=== PATIENT | female | born 2005 | race African-American/Black ===

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

== ENCOUNTER 2023-03-22 17:28 | Emergency (ER) | payer OTHER, SELFPAY ==
[2023-03-22 17:37] VITALS: BP 114/56; PULSE 135; RESP 18; TEMP 37.8; O2SAT 98; BMI 21.4
--- NOTE | 2023-03-22 17:38 | ED_ITS ---
HPI - General Adult General Chief complaint: Nausea/Vomiting/Diarrhea Stated complaint: vomiting/sob Related Data Previous Rx's Medication Instructions Recorded hydroxyzine HCl 10 mg tablet 10 mg PO TID PRN anxiety #14 tabs 10/04/22 medroxyprogesterone 150 mg/mL 150 mg IM [id number] contraception 10/04/22 intramuscular suspension #1 mL (Depo-Provera) Allergies Allergy/AdvReac Type Severity Reaction Status Date / Time No Known Allergies Allergy Unverified 11/01/19 17:12 [facility] Past Medical History Medical History Difficulty concentrating Anxiety and depression Living in intermediate Social History Social History Advance Directives: No Advance Directives Information Provided: No Physical Exam ED Vital Signs: BMI result Body Mass Index 21.4 Course Course Course Narrative: This is a rapid medical exam. Deferred additional HPI, ROS, PE to primary provider. 17 yo female with no known medical problems here with vomiting, headache, abdominal cramping. Son was sick with similar symptoms. Did COVID test this morning which was negative. LMP 1 month ago. Took test this morning which was negative. Will obtain labs, UA, ur preg and viral testing Zofran ordered VSS Medical Decision Making Lab Data 03/22/23 18:18 03/22/23 18:18 Labs: Lab Results 03/22/23 Range/Units 18:18 WBC 4.2 L (4.8-10.8) X10*3/uL RBC 5.13 (4.20-5.50) X10*6/uL Hgb 12.9 (12.0-16.0) g/dl Hct 40.2 (37.0-47.0) % MCV 78.4 L (80.0-98.0) fL MCH 25.1 L (27.0-33.0) pg MCHC 32.1 (31.0-35.0) g/dl RDW 13.2 (11.0-16.0) % Plt Count 314 (160-400) X10*3/uL MPV 8.6 L (9.4-12.3) fL Immature Gran % (Auto) 0.2 (0.0-0.4) % Neut % (Auto) 69.8 (45-73) % Lymph % (Auto) 16.0 L (20-40) % Frio % (Auto) 13.6 H (2-11) % Eos % (Auto) 0.2 (0-4) % Baso % (Auto) 0.2 (0-2) % Lymph # (Auto) 0.7 L (1.2-4.9) X10*3/uL Frio # (Auto) 0.6 (0.1-1.2) X10*3/uL Eos # (Auto) 0.0 (0.0-0.4) X10*3/uL Baso # (Auto) 0.0 (0.0-0.2) X10*3/uL Abs Immat Gran (auto) 0.01 (0.00-0.03) X10*3/uL Absolute Neuts (auto) 2.9 (2.0-8.3) x10*3/uL Absolute Nucleated RBC 0.000 (0.0-0.012) X10*3/uL Nucleated RBC % (auto) 0.0 (0.0-0.2) /100WBC Sodium 138 (135-145) mmol/L Potassium 3.5 (3.3-5.1) mmol/L Chloride 105 (96-108) mmol/L Carbon Dioxide 23 (22-29) mmol/L Anion Gap 14 (12-20) BUN 7 L (9-16) mg/dL Creatinine 0.77 (0.5-1.4) mg/dL Estim Creat Clear Calc 118.2 Estimated GFR > 60 Random Glucose 107 (60-115) mg/dL Calcium 8.8 (8.4-10.2) mg/dL Total Bilirubin 1.1 H (0.0-1.0) mg/dL Direct Bilirubin 0.4 (0.0-0.5) mg/dL AST 14 (5-31) U/L ALT 6 (0-31) U/L Alkaline Phosphatase 85 (39-117) U/L Total Protein 7.0 (6.5-8.0) g/dL Albumin 4.2 (3.5-5.0) g/dL COVID-19 (TETO) Negative (Negative) COVID-19 Clin Com See Note Influenza Type A (ERICH) Negative (Negative) Influenza Type B (ERICH) Negative (Negative) Influenza A & B Note See Note Discharge Plan Discharge Clinical Impression: Vomiting Patient Disposition: Left W/O Completing Treatment Prescriptions: No Action hydroxyzine HCl 10 mg tablet 10 mg PO TID PRN (Reason: anxiety) Qty: 14 0RF medroxyprogesterone [Depo-Provera] 150 mg/mL suspension 150 mg IM [id number] Qty: 1 2RF Rx Instructions: just bottle- not prefilled syringe Interventions: LWBS Worksheet Last Done: 03/23/23 00:47 Discharge Date/Time: 03/23/23 00:48
[2023-03-22 18:28] LABS: MANUAL DIFF FLAG NO
[2023-03-22 18:29] LABS: Basophils Percent Auto 0.2 % (0-2); Eosinophils Percent Auto 0.2 % (0-4); Hematocrit 40.2 % (37.0-47.0); Hemoglobin 12.9 g/dl (12.0-16.0); Imm Gran Abs Auto 0.01 X10*3/uL (0.00-0.03); Imm Gran Pct Auto 0.2 % (0.0-0.4); Lymphocytes Absolute Auto 0.7 X10*3/uL (1.2-4.9); Mean Corpuscular HGB Conc 32.1 g/dl (31.0-35.0); Mean Corpuscular Hemoglobin 25.1 pg (27.0-33.0); Mean Corpuscular Volume 78.4 fL (80.0-98.0); Mean Platelet Volume 8.6 fL (9.4-12.3); Monocytes Absolute Auto 0.6 X10*3/uL (0.1-1.2); Monocytes Percent Auto 13.6 % (2-11); Neutrophils Absolute Auto 2.9 x10*3/uL (2.0-8.3); Neutrophils Percent Auto 69.8 % (45-73); Platelet Count 314 X10*3/uL (160-400); Red Blood Count 5.13 X10*6/uL (4.20-5.50); Red Cell Distribution Width 13.2 % (11.0-16.0); White Blood Count 4.2 X10*3/uL (4.8-10.8)
[2023-03-22 18:42] LABS: Alanine Aminotransferase 6 U/L (0-31); Albumin Level 4.2 g/dL (3.5-5.0); Alkaline Phosphatase 85 U/L (39-117); Anion Gap 14 (12-20); Aspartate Amino Transferase 14 U/L (5-31); Bilirubin Direct 0.4 mg/dL (0.0-0.5); Bilirubin Total 1.1 mg/dL (0.0-1.0); Blood Urea Nitrogen 7 mg/dL (9-16); Calcium 8.8 mg/dL (8.4-10.2); Carbon Dioxide 23 mmol/L (22-29); Chloride 105 mmol/L (96-108); Creatinine Clr Calc Pharmacy 118.2; Estimated Glomerular Filt Rate > 60; Glucose Random 107 mg/dL (60-115); Potassium 3.5 mmol/L (3.3-5.1); Sodium 138 mmol/L (135-145)
[2023-03-22 18:55] LABS: COVID-19 Test Negative (Negative); IDNOW Serial# 16C4AD1C; IDNOW Serial# 55D5AD1C; Influenza A Negative (Negative); Influenza B2 Negative (Negative)
== END 2023-03-23 00:48 | disposition left against medical advice (07) ==
PROVIDERS: Nurse Practitioner Family; Emergency Provider Emergency Medicine; PCP Pediatrics
DX: R11.2 Nausea with vomiting, unspecified (principal); R06.02 Shortness of breath; R19.7 Diarrhea, unspecified; Z11.52 Encounter for screening for COVID-19
CPT/HCPCS: 36415; 80048; 80076; 85025; 87502; 87635; 99281; 99283

== ENCOUNTER → 2023-03-28 10:21 | Outpatient (BNV) | payer OTHER, SELFPAY ==
--- NOTE | 2023-03-28 10:21 | A.OFFVIS_ITS ---
Intake Intake Visit Reasons: Amb Documentation Allergies No Known Allergies Allergy (Unverified 11/01/19 17:12) HPI HPI Comments History of Present Illness Details student was seen on tuesday for migraine - given tylenol and cough drops. didn't want to leave school - multiple neg covid tests and flu etc. she is here w/ ear pain and coughing and bad headache again,. she'd like to go home today. states she is not taking any medicaitons - not the hydroxyzine (never picked up) and she is not and has no medical allergies PFS Medical History Difficulty concentrating Anxiety and depression Living in [facility] Social History Advance Directives: No Advance Directives Information Provided: No Review of Systems Const Details: Counseling visit: All systems reviewed & are unremarkable except as noted in HPI and below Reports as per HPI Eyes Reports no additional complaints ENT Reports otalgia, Reports nasal congestion, Reports sinus pressure and Reports sore throat Card Reports no additional complaints Resp Details: student hates coughing and won't breath deeply Reports as per HPI, Reports chest congestion and Reports cough GI Reports as per HPI Musc Reports as per HPI Neuro Reports as per HPI Psych Reports as per HPI Physical Exam Const Other: doesn't not appear to feel well, holding head and right ear General: cooperative Nutritional Appearance: well nourished Orientation/consciousness: oriented to person Limitations: no limitations HEENT Ears: external ears normal, TM normal on the left and TM abnormal (right, bulging w/ serous, not red) bulging General nose exam: Normal external nose present Eyes Other: wnl Chest Other: easy breathing Resp Other: student will not breath deeply - when she coughs it is deep and loose sounding but she refuses to cough or to breath deeply because it will make her cough. Effort & Inspection: normal respiratory effort and able to speak in complete sentences Skin Other: normal in appearance Neuro Other: grossly normal General: oriented to person Cognition (Neuro): normal cognition Gait exam (Neuro): Normal gait present Psych Other: see HPI Mental Status: mental status grossly normal Speech and movement: Clear speech present Attitude: cooperative Thought process: Normal thought process present Assessment & Plan Assessment & Plan (1) Sinus infection: Code(s): J32.9 - Chronic sinusitis, unspecified (2) Bronchitis: Code(s): J40 - Bronchitis, not specified as acute or chronic (3) Living in [place] [facility]: Code(s): Z59.01 - Sheltered homelessness Plan she really doesn't feel well, transportation arranged to go home. she cant' get to her pcp - started her on zpak - and gave ibuprofen 600mg now and some samples to take home. if she doesnt feel any better in 48 hours she will go to urgent care. jaycob badillo - involved in her care - coord care Medications: Discontinued hydroxyzine HCl Discontinued Reason: None 10 mg PO TID PRN 14 tabs 0RF anxiety Coding Level of Care Code Est Pt Level 3 (81406) Diagnoses Sinus infection J32.9 Bronchitis J40 Living in [facility] Z59.01 Time Spent (min) 20 Comment extra support needed to help student
== END ==
PROVIDERS: PCP Pediatrics; Visit Provider Nurse Practitioner Family
DX: J32.9 Chronic sinusitis, unspecified (principal); J40 Bronchitis, not specified as acute or chronic; Z59.01 Sheltered homelessness
CPT/HCPCS: 99213

== ENCOUNTER → 2023-04-07 10:29 | Outpatient (BNV) | payer OTHER, SELFPAY ==
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
== END ==
PROVIDERS: PCP Pediatrics; Visit Provider Nurse Practitioner Family
DX: J32.9 Chronic sinusitis, unspecified (principal); R41.840 Attention and concentration deficit; F41.9 Anxiety disorder, unspecified; F32.A Depression, unspecified; Z59.01 Sheltered homelessness; Z30.09 Encounter for other general counseling and advice on contraception; Z13.30 Encounter for screening examination for mental health and behavioral disorders, unspecified
CPT/HCPCS: 96160; 99215

== ENCOUNTER → 2023-04-11 09:53 | Outpatient (BNV) | payer OTHER, SELFPAY ==
--- NOTE | 2023-04-11 09:57 | ...WebTmpl.AM.BPCHK ---
Intake Intake Visit Reasons: Amb Documentation, this was a mistake Allergies No Known Allergies Allergy (Unverified 11/01/19 17:12) Coding Level of Care Code Est Pt Level 1 (19651)
--- NOTE | 2023-04-11 10:32 | A.OFFVIS_ITS ---
Intake Intake Visit Reasons: Amb Documentation Allergies No Known Allergies Allergy (Unverified 11/01/19 17:12) HPI HPI Comments History of Present Illness Details long conversation about depression. student signed up for me because she really wants to be on medication. she didn't come intp school on tuesday because she couldn't get out of bed. she is very very depressed. she is not suicidal but she feels bery unmotivated. even when baby cries - she doesn't want to move. she does, but she wants to feel differently about it. she is 'super not on my tgame'. her mood is all over the place. she initially said she would participate in therapy, but then today she is saying that she doesn;'t want one. that she really doesn't want to talk some days and frankly doesn't really want to be in school. she is too tired. she states that she went to bed at 230am and woke w/ alarm at 630, and then again at 7 didn't want to get up. states that her baby was up happy in crib watchign whatever i put on my laptop / she still smokes to settle in the evening. PLAN lengthy plan w/ student and then consultation w/ Kylah Caldera. if student isnt coming to school and isn't participating in therapy here then it doesn't make sense to put medications through from here. she can use her pcp to get this medication where there weill be better follow up. kylah will meet w/ her today and suggest a plan that gets her back to school tomorrow- to go get meds and to go to [facility] and discuss a plan that she participates in and designs. This cant be a fully imposed plan or she wont do it. suggested outpatient psych if she cant stick wt a plan structured around school. kylah will get this clarified w/ her today and discuss tomorrow [facility] Medical History Difficulty concentrating Anxiety and depression Living in [facility] Social History Advance Directives: No Advance Directives Information Provided: No Review of Systems Const Details: Counseling visit: All systems reviewed & are unremarkable except as noted in HPI and below Reports as per HPI Resp Reports as per HPI GI Reports as per HPI Musc Reports as per HPI Neuro Reports as per HPI Psych Reports as per HPI Physical Exam Const General: cooperative, healthy appearing and no acute distress Nutritional Appearance: well nourished Orientation/consciousness: oriented to person Limitations: no limitations HEENT Other: wnl Eyes Other: wnl Chest Other: easy breathing Resp Effort & Inspection: able to speak in complete sentences Skin Other: normal in appearance Neuro General: oriented to person Psych Other: student gets a bit silent - she appears to be withdrawing though not hostile, nor uncommunicative. i question if she is disociating, discussed that she should go back and work w/ elementary math tutor as it keeps her distracted and moving forward. she will do this and i bridgette consult w CV re plan for her. Appearance: well kempt Mental Status: mental status grossly normal Speech and movement: Clear speech present Attitude: cooperative Thought process: Normal thought process present Assessment & Plan Assessment & Plan (1) Counseling and coordination of care: Code(s): Z71.89 - Other specified counseling (2) Anxiety and depression: Code(s): F41.9 - Anxiety disorder, unspecified; F32.A - Depression, unspecified (3) Living in [facility]: Code(s): Z59.01 - Sheltered homelessness (4) Major depression, chronic: Code(s): F32.9 - Major depressive disorder, single episode, unspecified Plan extensive support and counseling - coord care w/ onsite counselor and she will address plan as noted above. meds put into pharmacy small quantity and student needs to be coming to school and going to therapy to get this plan moving. Medications: New sertraline 12.5 mg (1/2 x 25 mg) PO DAILY 14 tabs 0RF Coding Level of Care Code Est Pt Level 5 (83642) Diagnoses Counseling and coordination of care Z71.89 Anxiety and depression F41.9; F32.A Living in [place] Z59.01 Major depression, chronic F32.9 Time Spent (min) 60 Comment extensive counseling and coord care
--- NOTE | 2023-04-12 10:28 | A.OFFVIS_ITS ---
Intake Intake Visit Reasons: Amb Documentation Allergies No Known Allergies Allergy (Unverified 11/01/19 17:12) HPI HPI Comments History of Present Illness Details student returning for mental health issues- she feels terribly depressed ( and i feel she may be dissociating given a blank response during intense talking). she made it to school today after taking child to in [place]. she want help. jaycob met w/ her yestreday to connect to therapist, she hadn't wanted this,. she was on hotline till engineering technical specialist. texting. she states today that she needs help and willing to get therapist. [facility]cob will help her get this morning. and she will start tomoirrow morning. long discussion w student about the meds and her fear about starting on them. we will start low so that she wont have any complaints and we can adjust meds up from there. she smiles and agrees. [facility] . PFSH Medical History Difficulty concentrating Anxiety and depression Living in intermediate Social History Advance Directives: No Advance Directives Information Provided: No Review of Systems Const Details: Counseling visit: All systems reviewed & are unremarkable except as noted in HPI and below Reports as per HPI Resp Reports as per HPI GI Reports as per HPI Musc Reports as per HPI Neuro Reports as per HPI Psych Reports as per HPI Physical Exam Const General: cooperative, healthy appearing and no acute distress Nutritional Appearance: well nourished Orientation/consciousness: oriented to person Limitations: no limitations HEENT Other: wnl Eyes Other: wnl Chest Other: easy breathing Resp Effort & Inspection: able to speak in complete sentences Skin Other: normal in appearance Neuro General: oriented to person Psych Other: see HPI Mental Status: mental status grossly normal Speech and movement: Clear speech present Attitude: cooperative Thought process: Normal thought process present Assessment & Plan Assessment & Plan (1) Counseling and coordination of care: Code(s): Z71.89 - Other specified counseling (2) Anxiety and depression: Code(s): F41.9 - Anxiety disorder, unspecified; F32.A - Depression, unspecified (3) Living in intermediate: Code(s): Z59.01 - Sheltered homelessness (4) Major depression, chronic: Code(s): F32.9 - Major depressive disorder, single episode, unspecified Plan see hpi: intensive networking w/ onsite staff and off site mental health supports, and her intermediate, to get her into care. she will start medication tomorrow and return for visit w/ me. Medications: New sertraline 12.5 mg (1/2 x 25 mg) PO DAILY 14 tabs 0RF Coding Level of Care Code Est Pt Level 4 (74957) Diagnoses Counseling and coordination of care Z71.89 Anxiety and depression F41.9; F32.A Living in intermediate Z59.01 Major depression, chronic F32.9 Time Spent (min) 45 Comment extensive support and coord care
--- NOTE | 2023-04-13 09:59 | A.OFFVIS_ITS ---
Intake Intake Visit Reasons: Amb Documentation Allergies No Known Allergies Allergy (Unverified 11/01/19 17:12) HPI HPI Comments History of Present Illness Details i dont understand what is happening. i am seeing this patient on 04/13 at 930-1000 am. i can not get the system to move beyond the 26th for this patient student was able to [employer] medication and tried taking a 1/2 pill this am - she feels nothing on it (this was the goal as she was afraid of medication). she states the pills were hard to break and disintegrated as pharmacy didnt cut them. [facility] holding medicaitons so jaycob aby has asked that student get a note to be able to bring meds to my office to distribute if she has forgotten to take them at 'home'. she has attempted to get therapist but there is a delay working w. her version of [facility] the place they went wouldnt take that version. so jaycob is working w. her on this. Delvin has asked to increase dose more quickly so she will take a whole pill tomorrow and continue to check in w. me and continue to work on getting therapist. ongoing consultation and coodintating care w/ jaycob badillo on site student support counselor. [facility] Medical History Difficulty concentrating Anxiety and depression Living in [facility] Social History Advance Directives: No Advance Directives Information Provided: No Review of Systems Const Details: Counseling visit: All systems reviewed & are unremarkable except as noted in HPI and below Reports as per HPI Resp Reports as per HPI GI Reports as per HPI Musc Reports as per HPI Neuro Reports as per HPI Psych Reports as per HPI Physical Exam Const Other: still seems fairly blank - flat affect and appears not engaged but she is willing to interact and is able to advocate for her self General: cooperative, healthy appearing and no acute distress Nutritional Appearance: well nourished Orientation/consciousness: oriented to person Limitations: no limitations HEENT Other: wnl Eyes Other: wnl Chest Other: easy breathing Resp Effort & Inspection: able to speak in complete sentences Skin Other: normal in appearance Neuro General: oriented to person Psych Other: see HPI Mental Status: mental status grossly normal Speech and movement: Clear speech present Attitude: cooperative Thought process: Normal thought process present Assessment & Plan Assessment & Plan (1) Counseling and coordination of care: Code(s): Z71.89 - Other specified counseling (2) Anxiety and depression: Code(s): F41.9 - Anxiety disorder, unspecified; F32.A - Depression, unspecified (3) Living in [facility]: Code(s): Z59.01 - Sheltered homelessness (4) Major depression, chronic: Code(s): F32.9 - Major depressive disorder, single episode, unspecified Plan ongoing support and med management while waiting to get into psychiatric care/therapy etc. counseling and coord care w. onsite and off-site supports ([facility] and behavioral health) Medications: New sertraline 12.5 mg (1/2 x 25 mg) PO DAILY 14 tabs 0RF Patient Instructions: increase to a whole tablet tomorrow Coding Level of Care Code Est Pt Level 4 (25036) Diagnoses Counseling and coordination of care Z71.89 Anxiety and depression F41.9; F32.A Living in [facility] Z59.01 Major depression, chronic F32.9 Time Spent (min) 30 Comment extensive counseilng and coord care
== END ==
PROVIDERS: PCP Pediatrics; Visit Provider Nurse Practitioner Family
DX: F41.9 Anxiety disorder, unspecified (principal); F32.A Depression, unspecified; Z71.89 Other specified counseling; Z59.01 Sheltered homelessness; F32.9 Major depressive disorder, single episode, unspecified
CPT/HCPCS: 99214; 99215; 99417

== ENCOUNTER → 2023-04-25 10:06 | Outpatient (BNV) | payer OTHER, SELFPAY ==
--- NOTE | 2023-04-25 10:06 | A.OFFVIS_ITS ---
Intake Intake Visit Reasons: Amb Documentation Allergies No Known Allergies Allergy (Unverified 11/01/19 17:12) HPI HPI Comments History of Present Illness Details extensive conversation and support again. student states that she has been taking 1/2 a pill every day. there has been a LOT of confusion - a note was written to support her in increasing dose to 1 pill and to bringing some tablets to school in case she forgot meds, but that was never given to her - not sure why this wasn't passed along. but she feels that 1/2 tablet is actually working well - she has gotten out of the house more (intermediate) and gone to the mall. she feels she's less anxious and more able to get moving on her day. she then will say that she occaionally missed a day and it makes her feel badly. teaching done aobut the half life concepts - so we talked about increasing the dosage to give her a little more cushion and then she states that the meds are making her feel sleepy. and then she will say that the meds help her just be calm. she notes that she is more able to make eye contact (i haven't even noticed this as an issue but she feels that she avoids looking directly at people and now she is able. she is very confused and confusing. we developed a plan together that she will continue w/ 1/2 tablet for another week to let her adjust and observe how she is doing. both jaycob our onsite cousnelor and the intermediate folks are trying to get her connected w/ therapy - but this hasnt happened yet. she states that the intermediate staff are noticing improvement SLEEP? she didn't sleep well last night - she didn't go to bed until 4 am and overslept through her alarm. she is still smoking every night to sleep but was up until 4 so it is clearly not the answer. but to not run against this - we just discussed this as her solution and we will do a deeper dive later. consulted w/ jaycob her counselor re: her plan and she states that earlier that day shed been complaining that the dose wasn't high enough. but she is owrking on getting her into counseling and we will just support her on this path currently - increasing the dose doesnt seem warranted at this time and i am trying to encourage her own agency to make these decisions with care. [facility] Medical History Difficulty concentrating Anxiety and depression Living in intermediate Social History Advance Directives: No Advance Directives Information Provided: No Review of Systems Const Details: Counseling visit: All systems reviewed & are unremarkable except as noted in HPI and below Reports as per HPI Resp Reports as per HPI GI Reports as per HPI Musc Reports as per HPI Neuro Reports as per HPI Psych Reports as per HPI Physical Exam Const General: cooperative, healthy appearing and no acute distress Nutritional Appearance: well nourished Orientation/consciousness: oriented to person Limitations: no limitations HEENT Other: wnl Eyes Other: wnl Chest Other: easy breathing Resp Effort & Inspection: able to speak in complete sentences Skin Other: normal in appearance Neuro General: oriented to person Psych Other: see HPI Mental Status: mental status grossly normal Speech and movement: Clear speech present Attitude: cooperative Thought process: Normal thought process present Assessment & Plan Assessment & Plan (1) Major depression, chronic: Code(s): F32.9 - Major depressive disorder, single episode, unspecified (2) Counseling and coordination of care: Code(s): Z71.89 - Other specified counseling (3) Difficulty concentrating: Code(s): R41.840 - Attention and concentration deficit (4) Living in intermediate: Code(s): Z59.01 - Sheltered homelessness Plan continue to monitor closely - her attendance at school has improved somewhat (the intermediate also pushing this). she will sign up next tuesday to see me and we will assess this issue before she runs out of medication. student needs extensive and wrap-around support so team is working on this together. Coding Level of Care Code Est Pt Level 4 (77145) Diagnoses Major depression, chronic F32.9 Counseling and coordination of care Z71.89 Difficulty concentrating R41.840 Living in intermediate Z59.01 Time Spent (min) 35 Comment extensive counseling and coord of care
== END ==
PROVIDERS: PCP Pediatrics; Visit Provider Nurse Practitioner Family
DX: F32.9 Major depressive disorder, single episode, unspecified (principal); Z71.89 Other specified counseling; R41.840 Attention and concentration deficit; Z59.01 Sheltered homelessness
CPT/HCPCS: 99214

== ENCOUNTER → 2023-05-09 10:41 | Outpatient (BNV) | payer OTHER, SELFPAY ==
--- NOTE | 2023-05-09 10:41 | A.OFFVIS_ITS ---
Intake Intake Visit Reasons: Amb Documentation Allergies No Known Allergies Allergy (Unverified 11/01/19 17:12) HPI HPI Comments History of Present Illness Details student stopping in to say needs refill of rx - only has two 1/2 pills - she feels that 1/2 pill is working well and doesnt want to change the dose. she is able to participate in activities that she wants to. she appears well and is smiling. i will put rx through - [facility] can only function w. rx as written on bottle. they are able to break the pills in half now. spoke w. her counselor to confirm that 1/2 is doing it;s job in getting her to school? (states yes, that student seems to be doing much better, smiling and making it to school regularly - even states that student stated during morning cocopah time that she is feeling much better) student states that [facility] is looking to get her a therapist but that hasnt happened yet. PFSH Medical History Difficulty concentrating Anxiety and depression Living in [facility] Social History Advance Directives: No Advance Directives Information Provided: No Review of Systems Const Details: Counseling visit: All systems reviewed & are unremarkable except as noted in HPI and below Reports as per HPI Resp Reports as per HPI GI Reports as per HPI Musc Reports as per HPI Neuro Reports as per HPI Psych Reports as per HPI Physical Exam Const General: cooperative, healthy appearing and no acute distress Nutritional Appearance: well nourished Orientation/consciousness: oriented to person Limitations: no limitations HEENT Other: wnl Eyes Other: wnl Chest Other: easy breathing Resp Effort & Inspection: able to speak in complete sentences Skin Other: normal in appearance Neuro General: oriented to person Psych Other: see HPI Mental Status: mental status grossly normal Speech and movement: Clear speech present Attitude: cooperative Thought process: Normal thought process present Assessment & Plan Assessment & Plan (1) Major depression, chronic: Code(s): F32.9 - Major depressive disorder, single episode, unspecified (2) Counseling and coordination of care: Code(s): Z71.89 - Other specified counseling (3) Living in [facility]: Code(s): Z59.01 - Sheltered homelessness Plan refill rx, reviewed care. coord care w. onsite counselor support communications electrician supervisor. Medications: Refilled sertraline 12.5 mg (1/2 x 25 mg) PO DAILY 30 tabs 0RF Discontinued azithromycin (Zithromax Z-Marciano) Discontinued Reason: None For 250 mg dose pack: take 500 mg today (day 1), then 250 mg for 4 days (days 2-5) PO 6 tabs 0RF Coding Level of Care Code Est Pt Level 3 (70170) Diagnoses Major depression, chronic F32.9 Counseling and coordination of care Z71.89 Living in [facility] Z59.01
== END ==
PROVIDERS: PCP Pediatrics; Visit Provider Nurse Practitioner Family
DX: F32.9 Major depressive disorder, single episode, unspecified (principal); Z71.89 Other specified counseling; Z59.01 Sheltered homelessness
CPT/HCPCS: 99213

== ENCOUNTER → 2023-06-06 09:51 | Outpatient (BNV) | payer OTHER, SELFPAY ==
--- NOTE | 2023-06-06 09:51 | A.OFFVIS_ITS ---
Intake Visit Reasons: Amb Documentation Allergies No Known Allergies Allergy (Unverified 11/01/19 17:12) HPI Comments Details: student dropping in - not feeling well not taking meds regularly. repeated conversation - must take antidepressants every day for them to work at all. she is only on 1/2 dose and it will go out of her system readily. she is happy w 1/2 pill. onsite counselor states that the care home staff remind her and she ignores them. she states to me that she only misses occasionally but this is not how they report it. discussed ways to remember and offered to hold some meds for her here (care home wont allow her to have her own meds in her bag). challenging attitude. she was dismissed from school to go to care home to take meds and encouraged to figure out a way to remember or to bring some here for us to hold for her. offered to follow up the next day and have a longer conversation (the rules are she needs to sign in upon walking in building not do a drop in as this interrupts the flow of classroom) PFSH Medical History Difficulty concentrating Anxiety and depression Living in care home Social History Advance Directives: No Advance Directives Information Provided: No Review of Systems Const Details: Counseling visit: All systems reviewed & are unremarkable except as noted in HPI and below Reports as per HPI Resp Reports as per HPI GI Reports as per HPI Musc Reports as per HPI Neuro Reports as per HPI Psych Reports as per HPI Physical Exam Const General: cooperative, healthy appearing and no acute distress Nutritional Appearance: well nourished Orientation/consciousness: oriented to person Limitations: no limitations HEENT Other: wnl Eyes Other: wnl Chest Other: easy breathing Resp Effort & Inspection: able to speak in complete sentences Skin Other: normal in appearance Neuro General: oriented to person Psych Other: see HPI Mental Status: mental status grossly normal Speech and movement: Clear speech present Attitude: cooperative Thought process: Normal thought process present Assessment & Plan Assessment & Plan (1) Anxiety and depression: Code(s): F41.9 - Anxiety disorder, unspecified; F32.A - Depression, unspecified Category: Medical (2) Living in care home: Code(s): Z59.01 - Sheltered homelessness Category: Social Hx (3) Counseling and coordination of care: Code(s): Z71.89 - Other specified counseling Category: Medical Plan ongoing coordination of care involving onsite counselors here and off-site care home staff. teaching w/ student herself.
== END ==
PROVIDERS: PCP Pediatrics; Visit Provider Nurse Practitioner Family
DX: F41.9 Anxiety disorder, unspecified (principal); F32.A Depression, unspecified; Z59.01 Sheltered homelessness; Z71.89 Other specified counseling
CPT/HCPCS: 99213